=== PATIENT | male | born 1990 | race Caucasian/White ===

== ENCOUNTER → 2018-07-15 | Outpatient (CLI) | payer BC ==
[~2018-07-15] VITALS: Ht 170.2 cm; Wt 81.8 kg
[~2018-07-15] MED LIST: MELATONIN1 MG PO
[2018-07-15 14:30] VITALS: BP 113/90
[2018-07-15 14:58] LABS: ALBUMIN 4.7 g/dL (3.5-5.0); CALCIUM 9.7 mg/dL (8.4-10.2); POTASSIUM 3.9 mmol/L (3.6-5.0); TOTAL BILIRUBIN 0.5 mg/dL (0.2-1.3); TOTAL PROTEIN 7.9 g/dL (6.3-8.2)
== END ==
LOC: AMSURD 14:13
PROVIDERS: Nurse Practitioner
DX: R00.2 Palpitations (principal)

== ENCOUNTER → 2018-07-22 | Outpatient (CLI) | payer BC ==
[2018-07-15 14:30] VITALS: BP 113/90
== END ==
LOC: LAB 17:06
DX: J02.9 Acute pharyngitis, unspecified (principal)

== ENCOUNTER → 2018-09-30 | Outpatient (CLI) | payer BC ==
[2018-07-15 14:30] VITALS: BP 113/90
== END ==
LOC: RAD 13:48
DX: I86.1 Scrotal varices (principal)